=== PATIENT | female | born 1970 | race Caucasian/White ===

== ENCOUNTER 2017-08-24 09:03 | Emergency (ER) | payer OTHER ==
[~2017-08-24] VITALS: Ht 170.2 cm; Wt 56.7 kg
[~2017-08-24 09:03] MED LIST: CIPR500 PO; FAMO20 PO; HYDACE5325 PO; SUCR1 PO
[2017-08-24] MEDS ORDERED: Prednisone20 MG PO (10:53)
[2017-08-24] MEDS ORDERED: ALBU90OI INH (10:53)
[2017-08-24] MEDS ORDERED: Cheratussin AC118 ML PO (10:53)
[2017-08-24] MEDS ORDERED: Zithromax250 MG PO (10:53)
== END 2017-08-24 11:06 | disposition home or self-care (01) ==
LOC: ER 09:03
DX: R05 Cough (principal); M25.552 Pain in left hip; F17.200 Nicotine dependence, unspecified, uncomplicated
CPT/HCPCS: 71046; 73502; 94640; 99284

== ENCOUNTER 2018-01-09 15:43 | Emergency (ER) | payer OTHER ==
[~2018-01-09] VITALS: Ht 170.2 cm; Wt 54.4 kg
[~2018-01-09 15:43] MED LIST changes: +ALBU90OI INH; +Cheratussin AC118 ML PO; +Prednisone20 MG PO; +Zithromax250 MG PO
[2018-01-09] MEDS ORDERED: Mobic15 MG PO (16:20)
[2018-01-09] MEDS ORDERED: [UNRECOGNIZED DRUG - SUPPLY] (16:20)
[2018-01-09] MEDS ORDERED: Baclofen10 MG PO (16:20)
== END 2018-01-09 16:26 | disposition home or self-care (01) ==
LOC: ER 15:43
DX: M54.42 Lumbago with sciatica, left side (principal); M25.531 Pain in right wrist; M25.532 Pain in left wrist; F17.200 Nicotine dependence, unspecified, uncomplicated
CPT/HCPCS: 96372; 99282; J1885

== ENCOUNTER 2018-08-07 20:04 | Emergency (ER) | payer OTHER ==
[~2018-08-07] VITALS: Ht 170.2 cm; Wt 81.7 kg
[~2018-08-07 20:04] MED LIST changes: +Baclofen10 MG PO; +Mobic15 MG PO; +[UNRECOGNIZED DRUG - SUPPLY]
[2018-08-07] MEDS ORDERED: PROM25 PO (21:56)
[2018-08-07] MEDS ORDERED: Bentyl20 MG PO (21:56)
[2018-08-07] MEDS ORDERED: CLON.1 PO (21:56)
== END 2018-08-07 22:17 | disposition home or self-care (01) ==
LOC: ER 20:04
DX: F11.23 Opioid dependence with withdrawal (principal); F17.210 Nicotine dependence, cigarettes, uncomplicated
CPT/HCPCS: 96361; 96374; 96375; 99284-25; J1200; J1885; J2550; J7120

== ENCOUNTER → 2019-01-11 | Outpatient (CLI) | payer OTHER ==
[~2019-01-11] MED LIST changes: +Bentyl20 MG PO; +CLON.1 PO; +PROM25 PO
[2019-01-11 13:17] LABS: BASOPHILS ABSOLUTE AUTO 0.03 K/mm3 (0.00-0.23); BASOPHILS PERCENT AUTO 0 % (0-2); EOSINOPHILS ABSOLUTE AUTO 0.08 K/mm3 (0.00-0.68); EOSINOPHILS PERCENT AUTO 1 % (0-6); Hemoglobin 14.5 g/dL (11.5-16.0); IMMATURE GRAN ABSOLUTE AUTO 0.02 K/mm3 (0.00-0.10); IMMATURE GRAN PERCENT AUTO 0 % (0-1); LYMPHOCYTES PERCENT AUTO 28 % (21-46); MONOCYTES ABSOLUTE AUTO 0.58 K/mm3 (0.16-1.47); MONOCYTES PERCENT AUTO 7 % (4-13); Mean Corpuscular HGB 30.1 pg (26.0-34.0); Mean Corpuscular HGB Conc 34.5 g/dL (31.5-36.5); Mean Corpuscular Volume 87 fL (80-100); Mean Platelet Volume 9.6 fL (9.1-12.4); NEUTROPHILS ABSOLUTE AUTO 5.64 K/mm3 (1.96-9.15); NEUTROPHILS PERCENT AUTO 64 % (41-73); Platelet Count 300 K/mm3 (150-400); RDW Coefficient Variation 13.3 % (11.7-14.2); RDW Standard Deviation 42.5 fL (35.1-46.3); Red Blood Cell Count 4.82 M/mm3 (3.80-5.20); White Blood Cell Count 8.85 K/mm3 (4.00-11.30)
[2019-01-11 13:40] LABS: Alanine Aminotransfer (ALT/SGP 18 U/L (12-78); Albumin, Blood 4.2 g/dL (3.4-5.0); Albumin/Globulin Ratio 1.1 (0.8-1.8); Alk Phos 49 U/L (40-126); Anion Gap 14 mmol/L (6-16); Aspartate Aminotrans (AST/SGOT 18 U/L (12-37); Bilirubin, Total 0.5 mg/dL (0.1-1.0); Blood Urea Nitrogen 14 mg/dL (8-24); Bun/Creatinine Ratio 16.9 (12.0-20.0); CO2, Blood 22 mmol/L (21-32); Calcium, Blood 9.4 mg/dL (8.5-10.1); Chloride, Blood 102 mmol/L (98-108); Creatinine, Blood 0.83 mg/dL (0.40-1.00); Globulin, Blood 3.9 g/dL (2.2-4.0); Glomerular Filtration Rate >60 (60-); Glucose, Blood 99 mg/dL (70-99); Potassium, Blood 3.5 mmol/L (3.5-5.5); Sodium, Blood 138 mmol/L (136-145); Total Protein, Blood 8.1 g/dL (6.4-8.2)
== END | disposition home or self-care (01) ==
LOC: LAB SHORT 13:12 → LAB EV 13:12
PROVIDERS: Physician Assistant
DX: R53.83 Other fatigue (principal)
CPT/HCPCS: 80053; 84443; 85025

== ENCOUNTER 2019-05-27 10:38 | Emergency (ER) | payer OTHER ==
[~2019-05-27] VITALS: Ht 170.2 cm; Wt 64.0 kg
[2019-05-27] MEDS ORDERED: Prednisone20 MG PO (11:45)
[2019-05-27] MEDS ORDERED: ZOVIRAX800 MG PO (11:45)
[2019-05-27] MEDS ORDERED: HYDR1TAB94 PO (11:46)
== END 2019-05-27 12:32 | disposition home or self-care (01) ==
LOC: ER 10:38
DX: B02.9 Zoster without complications (principal); J44.9 Chronic obstructive pulmonary disease, unspecified; F17.200 Nicotine dependence, unspecified, uncomplicated
CPT/HCPCS: 71046; 94640; 94760; 99283-25

== ENCOUNTER → 2020-02-12 | Outpatient (CLI) | payer OTHER ==
[~2020-02-12] MED LIST changes: +HYDR1TAB94 PO; +ZOVIRAX800 MG PO
== END | disposition home or self-care (01) ==
LOC: LAB 13:58 → LAB SHORT 13:58
DX: R30.9 Painful micturition, unspecified (principal)
CPT/HCPCS: 87077; 87086; 87186